=== PATIENT | female | born 2000 | race Hispanic/Latino ===

== ENCOUNTER 2024-11-04 13:56 | Emergency (ER) | payer OTHER, SELFPAY ==
[2024-11-04 14:26] VITALS: BP 115/72; PULSE 79; RESP 16; TEMP 36.6; O2SAT 98
[2024-11-04] MEDS: LIDOCAINE 1% LOCAL INJ 10 ML VIAL INFILTRATE (17:08)
--- NOTE | 2024-11-04 17:13 | ED.UPPEXIN ---
HPI - Extremity Injury (Upper) General Chief Complaint: Extremity Injury, Upper Stated Complaint: lac to R. hand Time Seen by Provider: 11/04/24 15:32 Source: patient Mode of arrival: ambulatory Limitations: no limitations History of Present Illness HPI narrative: Patient is a 24-year-old female who presents the ED with report of laceration to her right palm. 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 Denies any other injuries. Tetanus unknown. Patient is currently 35 weeks gestation. Related Data Allergies Allergy/AdvReac Type Severity Reaction Status Date / Time No Known Allergies Allergy Verified 11/04/24 14:28 Review of Systems Review of Systems: All systems reviewed & are unremarkable except as noted in HPI. All systems reviewed & are unremarkable except as noted in HPI and below Exam Narrative: GENERAL: Well appearing, well-nourished, non-toxic, in no acute distress. HEAD: Normocephalic, atraumatic. RESPIRATORY: Airway patent, respirations nonlabored. CARDIOVASCULAR: Regular rate and rhythm. Radial pulses intact MUSCULOSKELETAL: Moves all extremities. No gross deformities. SKIN: Warm, dry, normal color. 2cm laceration to R thenar region, well approximated, no active bleeding. NEURO: A&O X3. Speech clear. Steady gait. No ataxic movements. PSYCHIATRIC: Appropriate mood and affect. Normal interaction. Course Vital Signs Vital signs: Vital Signs Temperature 97.9 F 11/04/24 14:26 Pulse Rate 79 11/04/24 14:26 Respiratory Rate 16 11/04/24 14:26 Blood Pressure 115/72 11/04/24 14:26 Pulse Oximetry 98 11/04/24 14:26 Oxygen Delivery Room Air 11/04/24 14:26 Temperature 97.9 F 11/04/24 14:26 Pulse Rate 79 11/04/24 14:26 Respiratory Rate 16 11/04/24 14:26 Blood Pressure 115/72 11/04/24 14:26 Pulse Oximetry 98 11/04/24 14:26 Oxygen Delivery Room Air 11/04/24 14:26 Procedures Laceration Laceration 1: Date: 11/04/24 Time: 17:00 Site: hand Side (If applicable): right Size (cm): 2 Description: linear Depth: simple, single layer Local Anesthetic: lidocaine 1% Amount of anesthesia used (mL): 5 Pre-repair: wound explored and irrigated ====== Skin Level ====== Skin layer closed with: nylon Size (cm): 4-0 Number of sutures: 5 Technique: simple, interrupted ====== Subcutaneous Layer ====== ====== Muscle Layer ====== ====== Tendon Layer ====== MDM - Extremity Injury (Upper) MDM Narrative Medical decision making narrative: Laceration repaired without complications. Patient's tetanus updated in the ED. Given wound care instructions and reasons to return. Discharged in stable condition. Medical Records Attestation: I reviewed the patient's medical records. Discharge Plan Discharge Clinical Impression: Laceration of right hand Qualifiers: Encounter type: initial encounter Foreign body presence: without foreign body Qualified Code(s): S61.411A - Laceration without foreign body of right hand, initial encounter Patient Disposition: Home Condition: Stable Instructions: Antibiotic Form, Care For Your Stitches (ED), Laceration (ED) Additional Instructions: Return to the ED or visit an urgent care or your PCP for follow-up and wound check/suture removal in 10 to 14 days. Wash with simple soap and water twice daily, but do not scrub. Bandage if needed. Return to the ED if you experience uncontrolled bleeding, fever, chills, pus-like drainage, or redness/swelling/warmth surrounding the wound, as these could be signs of an infection. Patient Language: Upper Sorbian Follow-up/Referrals: PHYSICIAN,TOBACCO FEEDER CATCHER [Primary Care Provider, Internal Medicine] Time of Disposition: 17:14
[2024-11-04] MEDS: TETANUS,DIPHTHERIA,AC PERTUSSIS ADULT (0.5 ML) BOOSTRIX IM (17:20)
== END 2024-11-04 17:30 | disposition home or self-care (01) ==
PROVIDERS: Emergency Provider Physician Assistant
DX: S61.411A Laceration without foreign body of right hand, initial encounter (principal); W29.0XXA Contact with powered kitchen appliance, initial encounter; Z23 Encounter for immunization
CPT/HCPCS: 12001; 90471; 90715; 99282; J2003

== ENCOUNTER 2024-11-09 00:59 | Inpatient (IN) | payer OTHER, SELFPAY ==
[2024-11-09] VITALS (146 sets, daily range): BP systolic 75–153; BP diastolic 33–101; PULSE 57–289; RESP 16; TEMP 36.1–37.3; O2SAT 70–100; BMI 30.2
[2024-11-09 02:06] LABS: Hematocrit 36.3 % (37.0-47.0); Hemoglobin 12.0 g/dL (12.0-15.0); Immature Granulocyte Percent A 0.5 % (0-0.5); Lymphocytes Absolute Auto 2.15 K/mm3 (0.9-3.2); Mean Corpuscular HGB Conc 33.1 g/dl (32-36); Mean Corpuscular Hemoglobin 29.3 pg (26-34); Mean Corpuscular Volume 88.8 fl (80-100); Nucleated Red Blood Cells Absolute Auto 0.000 K/mm3 (0.0-0.012); Nucleated Red Blood Cells Perc 0.0 % (0.0-0.2); Platelet Count Result 140 k/mm3 (150-375); Red Blood Count 4.09 M/mm3 (4.2-5.4); White Blood Count 11.2 K/mm3 (4.5-10.0)
[2024-11-09] MEDS: LACTATED RINGERS 1,000 ML 125 ML IV CONT ×4 (02:08→15:04)
[2024-11-09] MEDS: AMPICILLIN SODIUM 2 GM in SODIUM CHLORIDE 0.9% IV 100 ML 200 ML IVPB (02:09)
--- NOTE | 2024-11-09 02:16 | LDADM ---
This patient, Kaylee Alexander, was admitted to Labor/Delivery/Recovery 107 on 11/09/24 at 00:59. Plans for labor, pain management and were discussed with patient. Patient/family oriented to hospital policies and general routines including ID bracelet, bed and alarms, visiting hours, pain management, procedures, bathroom and other care routines, personal items, smoking policy, room service/diet and guest tray routines, infant security routines, and visiting hours. Patient/Family are encouraged to report perceived risks to care and to ask questions if they do not understand what they are told or what they should do. See OBIX for further documentation.
[2024-11-09 02:54] LABS: Syphilis IgG/IgM Antibody Non-Reactive (Nonreactive)
[2024-11-09 03:07] LABS: HIV 1/2 Ab P24 Ag Result Negative (Negative)
[2024-11-09] MEDS: AMPICILLIN SODIUM 1 GM in SODIUM CHLORIDE 0.9% IV 50 ML 100 ML IVPB ×2 (06:16→10:09)
[2024-11-09] MEDS: SODIUM CHLORIDE 0.9% IV 300 ML 600 ML I-UTERINE (06:46)
[2024-11-09 07:20] LABS: Hepatitis B Surface Anti Res Positive
--- NOTE | 2024-11-09 08:06 | WPDANESEPP ---
Anes - Eval Pre Procedure Procedure: Labor Epidural Date/Time: 11/09/24 08:06 Surgeon: Kleber Preop Diagnosis: Labor Pain Pre Op Diagnosis: SROM Patient Data Age: 24 Gender: F Height: 1.6 m Weight: 77.27 kg Last Vital Signs Temp 36.6 C 11/09/24 06:15 Pulse 79 11/09/24 08:01 BP 102/44 L 11/09/24 08:01 O2 Del Method Room Air 11/09/24 02:14 Allergies Allergy/AdvReac Type Severity Reaction Status Date / Time No Known Allergies Allergy Verified 11/04/24 14:28 Laboratory Tests 11/09/24 11/09/24 01:59 02:00 WBC 11.2 H K/mm3 (4.5-10.0) RBC 4.09 L M/mm3 (4.2-5.4) Hgb 12.0 g/dL (12.0-15.0) Hct 36.3 L % (37.0-47.0) MCV 88.8 fl (80-100) MCH 29.3 pg (26-34) MCHC 33.1 g/dl (32-36) RDW 13.0 % (11.5-14.5) Plt Count 140 L k/mm3 (150-375) MPV 12.0 H fl (7.4-10.4) Immature Gran % (Auto) 0.5 % (0-0.5) Neut % (Auto) 72.1 % (45.5-73.1) Lymph % (Auto) 19.3 % (18.3-44.2) [place] % (Auto) 7.4 % (2.6-8.5) Eos % (Auto) 0.4 % (0-4.4) Baso % (Auto) 0.3 % (0.2-1.2) Lymph # (Auto) 2.15 K/mm3 (0.9-3.2) [place] # (Auto) 0.8 H K/mm3 (0.1-0.6) Eos # (Auto) 0.0 K/mm3 (0-0.3) Baso # (Auto) 0.0 K/mm3 (0.0-0.1) Abs Immat Gran (auto) 0.06 H K/mm3 (0.00-0.031) Absolute Neuts (auto) 8.0 H K/mm3 (1.3-6.7) Absolute Nucleated RBC 0.000 K/mm3 (0.0-0.012) Nucleated RBC % 0.0 % (0.0-0.2) Syphilis IgG/IgM Ab Non-reactive (Nonreactive) Hep Bs Antibody Positive HIV 1&2 Ab/P24 Ag 4thGn Negative (Negative) Rubella IgG Antibody 6.4 L IU/ML (10 - ) Blood Type O Positive Antibody Screen Negative : gestational age (, PATTIE 12/05/24) Patient hx anesthesia problems: none Family hx anesthesia problems: none Results Review: All pre-operative results and documents have been reviewed as part of the pre-operative evaluation. [facility] Social History Social History Smoking status: Never smoker Second hand tobacco smoke exposure: No Substance use: never Lack of Transportation: No Lack of Food: Never True Current Housing: I Have Housing Concerned About Future Housing: No Difficulty Paying Gas/Electric Bills: No Difficulty Paying for Meds: No Currently Unemployed: No Education: Bachelor's Degree Difficulty w/ Childcare or Family Care: No Spiritual care concerns: No Exam Day of Procedure 11/09/24 08:06 Patient weight: normal Heart: regular rate and rhythm Lungs: normal air movement Airway: Mallampati scale class II Neurological: alert and oriented
[2024-11-09] MEDS: OXYTOCIN 30 UNITS/NS 500 ML 30 UNITS/500 ML BAG IV CONT (09:31)
--- NOTE | 2024-11-09 12:32 | WPDOBADMIT ---
Obstetrics - Admit Note Admission Note: record reviewed. No pertinent additions to the history and/or any subsequent changes in the physical findings that are not consistent with the expected course of the were found. Additions to the history and/or subsequent changes in the physical findings follow. Here for SROM at 36 2/7 weeks in early labor. Progressed to 5 cm then stalled. Pitocin started. Now /-1 AROM forebag. Unable to place IUPC. FHTs cat I.
[2024-11-09] MEDS: TERBUTALINE SULFATE 1 MG/ML VIAL 0.25 MG SUB-Q (13:07)
--- NOTE | 2024-11-09 13:50 | P.PCNOB_ITS ---
OB - Delivery Note Procedure Delivery date: 11/09/24 Pre-op diagnosis: Decelerations, Premature Rupture of Membranes and Other (36 2/7) Post-op Diagnosis: Same Induction method: None Delivery augmentation: Rupture of Membranes and Pitocin Delivery monitor: External FHT and Internal Uterine Prior to decision for section, ACOG/SMFM labor guidelines were consider ed and discussed with the patient and staff. Decision made to proceed with the section.: Yes Procedure Performed: Primary Primary branch: low cervical, transverse Surgeon: Elizabeth Bennett MD Anesthesia type: Epidural Description of Procedure/Findings: Had after I left the OB unit I was immediately called back for recurrent deep variable decelerations down to the 40s lasting for 1 full minute and returned to baseline. On my arrival the pattern was continuing. On cervical check the cervix was unchangedat6.5cm. IUPC was able to be placed anteriorly. Amnio infusion was begun. Pattern was watched for an additional 5minutes and did not resolve at all and actually worsened. Decision was made to proceed with primary . The was translating until the pharmacy general manager was obtained in the operating room after the patient was moved. 2minutes heart tones at 1:40 a.m. prior to removing the monitor. Once anesthesia was deemed adequate, the patient was prepped and draped. A Pfannenstiel skin incision was made with a scalpel and carried down to the underlying layer of fascia which was nicked in the midline and extended laterally using Hernández scissors. Ochsner was used to tent the fascia which was dissected off using sharp and blunt dissection. The rectus muscles are then in the midline and the peritoneum tented and entered with Metzenbaum scissors. The incision was extended with blunt traction. The bladder blade was placed. Vesicouterine peritoneum was tented and entered with Metzenbaum and extended laterally using Metzenbaum scissors. The bladder flap was created digitally and the bladder blade replaced. The lower uterine segment incised in transverse fashion with the scalpel and extended laterally using blunt traction. The vertex is brought up into the incision and delivered with minimal assistance. The was fully delivered and the cord clamped and cut. The had good tone on the abdomen was attempting to cry. No nuchal cord was noted and no abruption was noted. The placenta was removed using manual traction. The uterus was cleared of all clots and debris and exteriorized. The uterine incision was closed using 0 Monocryl in a running locked fashion. Same suture was used to imbricate. Good hemostasis was noted. The uterus was returned to the abdomen after the cul-de-sac is irrigated. Gated the gutters were then irrigated and the incision again inspected noted to be hemostatic. The fascia was closed using 0 Vicryl in a running fashion. The subcutaneous tissues were irrigated and noted to be hemostatic. Skin is closed using 4-0 Vicryl in a subcuticular fashion. Dermaflex was placed over the incision. Patient was given Ancef prior to incision. Sponge, needle, and instrument counts are correct per the OR staff. The patient was taken to recovery in stable condition. Specimen: Yes (Placenta) Estimated Blood Loss: 500 (Not calculated prior to this dictation. This is my estimate) Drains: Yes (Bone) Packing: No Complications: No immediate complications Condition: Stable Disposition: Floor [place] Baby Date of : 11/09/24 Gestational Age by Date: 36 (36 2) Infant gender: Female Weight (pounds): 4 Weight (ounces): 13 presentation: vertex position: Right Occiput Anterior Placenta delivery description: Spontaneous Cord Vessel Description: 3 Vessels score one minute: 6 score five minutes: 7
--- NOTE | 2024-11-09 13:58 | PM.OBDSVD ---
DS: Admitting Diagnosis Discharge Date 11/12/24 Admitting Diagnosis Intrauterine at 36 and 2/7 weeks with premature rupture of membranes in active labor DS: Discharge Diagnosis Discharge Diagnosis (1) Delivery by section using transverse incision of lower segment of uterus: Code(s): O82 - Encounter for delivery without indication Status: Acute (2) Variable deceleration: Status: Acute Assessment and Plan: Resolved OB - DS: Summary OB Procedures : Ultrasound OB Procedures Intrapartum: low cervical, transverse OB Procedures: : None Peripartum Data Infant Delivery Method: Section (LTCS) Procedures: Procedures Operation Date: 11/09/24 13:15 <No data on this case meets the specified criteria> complications: none Status at Discharge Functional status at discharge: independent ambulation Overall status at discharge: patient is progressing back to baseline Time Spent with Patient Time attestation: Total time spent providing and/or coordinating discharge services: DS: Data Data Completed and Pending Labs on day of discharge: Labs from last 24 hours 11/09/24 11/09/24 02:00 01:59 WBC 11.2 H RBC 4.09 L Hgb 12.0 Hct 36.3 L MCV 88.8 MCH 29.3 MCHC 33.1 RDW 13.0 Plt Count 140 L MPV 12.0 H Immature Gran % (Auto) 0.5 Neut % (Auto) 72.1 Lymph % (Auto) 19.3 [place] % (Auto) 7.4 Eos % (Auto) 0.4 Baso % (Auto) 0.3 Lymph # (Auto) 2.15 [place] # (Auto) 0.8 H Eos # (Auto) 0.0 Baso # (Auto) 0.0 Abs Immat Gran (auto) 0.06 H Absolute Neuts (auto) 8.0 H Absolute Nucleated RBC 0.000 Nucleated RBC % 0.0 Syphilis IgG/IgM Ab Non-reactive Hep Bs Antigen Pending Hep Bs Antibody Positive HIV 1&2 Ab/P24 Ag 4thGn Negative Rubella IgG Antibody 6.4 L Blood Type O Positive Antibody Screen Negative Discharge Plan Discharge Attending physician on discharge: Juan Daniel Penny Consulting providers: Kirstie Estrella Discharging Clinician: Juan Daniel Penny Patient Disposition: Home Activity: may shower, may drive after 2 weeks and pelvic rest Diet: as tolerated Wound Care Instructions: incision open to air Discharge Instructions: Education: Mom and Baby Guide Given to: Mother Follow-Up: Call your delivering provider's office for an appointment to be seen in: 4 Weeks Mom and baby should come to the [facility] for the follow-up appointment. Appointment Date/Time: November 13, 2024 at 8:00 am What to expect at your follow-up visit: Blood Pressure Check Physical Assessment Call [phone] if you are unable to keep your appointment time. BREAST CARE: * Wear a snug supportive bra. * For engorgement discomfort: Breast Feeding: * Apply warm moist washcloths * Express milk as needed to relieve engorgement * Wear loose clothing Bottle Feeding: * May apply ice packs * For sore nipples: * Identify correct latch-on * Apply warm moist washcloths before and after nursing * Air dry nipples after nursing * May apply Lansinoh cream to nipples ABDOMINAL INCISION: * Allow incision to air dry * Do NOT use lotions or powders on your incision * When showering, allow soap and water to run over the incision, but do not wash incision PERINEAL CARE: * Until bleeding stops, use your nik bottle after urinating * Change your pad frequently throughout the day * You may take sitz baths several times a day (fill your bathtub with warm water and soak for 20 minutes.) Do NOT bathe in the water * No tub baths until seen by your physician - You may shower ACTIVITY: * Rest as much as possible. * Do not exercise or lift anything heavier than your baby (such as laundry or other children.) * Avoid stairs or driving as much as possible. * Do not put anything into the vagina. No douching, tampons, or sexual activity until seen by physician. NOTIFY PHYSICIAN IF YOU HAVE ANY QUESTIONS OR IF ANY OF THE FOLLOWING SYMPTOMS OCCUR: * If your incision becomes red, swollen, or more painful than what you have experienced in the hospital. * If your vaginal bleeding becomes foul smelling. * If your vaginal bleeding becomes more heavy than a period or if your bleeding changes from pink to bright red. However, you may pass an occasional walnut-sized clot once or twice for the first week . * If you experience a sharp, shooting pain in your calves. * If you discover a hard, reddened area on your breast or if you experience flu-like symptoms. DIET: * Eat regular, well-balanced meals. * Drink plenty of fluids daily. If , drink to thirst. Patient Instructions: (DC) Patient Language: Montenegrin Stand Alone Forms: General Discharge Information Follow-up/Referrals: Juan Daniel Penny MD [Physician, SUPERINTENDENT CUSTODIAN JANITOR] - 4 Weeks Discharge Medications: New hydrocodone-acetaminophen 5-325 mg tablet 1 tablet PO Q4H PRN (Reason: pain) Qty: 20 0RF Date of admission: 11/09/24 00:59 Primary Care Provider: PHYSICIAN,AEROBICS INSTRUCTOR Admitting Provider: Elizabeth Bennett Attending physician on admission: Juan Daniel Penny Condition: Stable
[2024-11-09] MEDS: OXYTOCIN 30 UNITS/NS 500 ML 30 UNITS/500 ML BAG 125 UNITS IV CONT (14:00)
[2024-11-09 14:01] LABS: Hepatitis B Surface Antigen Negative (Negative)
--- NOTE | 2024-11-09 14:50 | SUR.OPER ---
1448- called TIFFANY Estrella to report pt blood pressures. Pt is asymptomatic at this time. Orders received.
--- NOTE | 2024-11-09 15:45 | S_PTH ---
PATIENT: Kaylee Andres LOC: ANHOB2 U#:[id number] AGE/SX: 24/F ROOM: 288 RE11/09/[address]: Juan Daniel De La Cruz MD : 2000 BED: 00 DIS: 11/12/2024 SPEC #: [id number] RECD: 11/11/24 07:49 STATUS: RENALDO REQ #: [id number] HELENA: 11/09/24 15:[address]: Kirstie Estrella DEPT: [facility] Surgical RECD BY: Jewel Diamond ENTERED: 11/11/24 07:49 SP TYPE: Surgical OTHR DR: Juan Daniel De La Cruz MD CNC SERVICE ENGINEER PHYSICIAN Tissues: A - Placenta Procedures: Hematoxylin and Eosin Stain Gross and Microscopic Level 5
[2024-11-09] MEDS: KETOROLAC 15 MG/ML VIAL (*BKC) IV PUSH ×2 (15:51→23:33)
[2024-11-09] MEDS: SIMETHICONE 80 MG TAB.CHEW PO (17:49)
[2024-11-09] MEDS: LIDOCAINE 5% PATCH 1 PATCH TRANSDERM (17:49)
[2024-11-09] MEDS: ACETAMINOPHEN 500 MG TABLET 1000 MG PO ×2 (17:49→23:32)
[2024-11-09] MEDS: oxyCODONE HCL (*CRX) 5 MG TAB IR PO (17:50)
[2024-11-09] MEDS: DOCUSATE SODIUM 100 MG CAPSULE PO (17:53)
[2024-11-09] MEDS: DEXTROSE 5%/0.45% SOD CHL 1,000 ML 125 ML IV CONT (18:01)
--- NOTE | 2024-11-09 18:31 | PC.NURSE ---
1715. Patient transferred to post room #288 via hospital bed. Support person present. Oriented to unit, room, information board, rooming in, admission packet and security measures. Patient verbalizes understanding.
--- NOTE | 2024-11-09 20:57 | PC.NURSE ---
2054. Patient escorted to level 2 nursery via wheelchair to visit her baby with her partner by her side.
[2024-11-10 04:15] VITALS: BP 103/67; PULSE 66; RESP 16; TEMP 36.6; O2SAT 97
[2024-11-10 05:21] LABS: Hematocrit 28.6 % (37.0-47.0); Hemoglobin 9.3 g/dL (12.0-15.0); Immature Granulocyte Percent A 0.5 % (0-0.5); Lymphocytes Absolute Auto 1.76 K/mm3 (0.9-3.2); Mean Corpuscular HGB Conc 32.5 g/dl (32-36); Mean Corpuscular Hemoglobin 29.7 pg (26-34); Mean Corpuscular Volume 91.4 fl (80-100); Nucleated Red Blood Cells Absolute Auto 0.000 K/mm3 (0.0-0.012); Nucleated Red Blood Cells Perc 0.0 % (0.0-0.2); Platelet Count Result 115 k/mm3 (150-375); Red Blood Count 3.13 M/mm3 (4.2-5.4); White Blood Count 12.2 K/mm3 (4.5-10.0)
[2024-11-10] MEDS: ACETAMINOPHEN 500 MG TABLET 1000 MG PO ×4 (05:39→23:16)
[2024-11-10] MEDS: KETOROLAC 15 MG/ML VIAL (*BKC) IV PUSH (05:39)
[2024-11-10 07:20] VITALS: BP 100/49; PULSE 60; RESP 14; TEMP 36.9; O2SAT 97
[2024-11-10] MEDS: DOCUSATE SODIUM 100 MG CAPSULE PO ×2 (09:11→17:40)
[2024-11-10] MEDS: SIMETHICONE 80 MG TAB.CHEW PO ×3 (09:11→17:42)
[2024-11-10] MEDS: MULTIVIT/MIN/PREN/FOL AC/IRON TABLET 1 TAB PO (09:11)
--- NOTE | 2024-11-10 10:57 | PM.OBPNVD ---
OB - PN: Subj Subjective Date/time seen: 11/10/24 10:57 Patient comments: no complaints and pain well controlled baby status: doing well OB - PN: Obj Data Labs 11/10/24 04:30 Labs: Laboratory Results - last 24 hr 11/09/24 11/10/24 01:59 04:30 WBC 12.2 H RBC 3.13 L Hgb 9.3 L Hct 28.6 L MCV 91.4 MCH 29.7 MCHC 32.5 RDW 13.0 Plt Count 115 L MPV 12.6 H Immature Gran % (Auto) 0.5 Neut % (Auto) 78.5 H Lymph % (Auto) 14.5 L [place] % (Auto) 6.2 Eos % (Auto) 0.1 Baso % (Auto) 0.2 Lymph # (Auto) 1.76 [place] # (Auto) 0.8 H Eos # (Auto) 0.0 Baso # (Auto) 0.0 Abs Immat Gran (auto) 0.06 H Absolute Neuts (auto) 9.6 H Absolute Nucleated RBC 0.000 Nucleated RBC % 0.0 Hep Bs Antigen Negative OB - PN A/P Plan day: 1 Plan: routine care Time Spent With Patient Time: Total time spent is greater than 50% in coordination of care (as documented) at patient's floor/unit and/or counseling patient: Exam Narrative: inc c/d/i : Bimanual exam- vagina & uterus: other (Uterus firm, nt @U)
--- NOTE | 2024-11-10 11:34 | WPDANLDPN2 ---
Anes-Prog Note L&D Date/Time: 11/10/24 11:34 Comfortable throughout: labor and section Neuraxial method: epidural Epidural/Spinal procedure site: clean & non-tender Neuro status: Neuro function grossly intact. Cardiovascular status: normal Respiratory status: normal Airway patency: baseline Mental status: baseline Post-Op hydration status: normal Vital Signs: Last Vital Signs Temp 36.9 C 11/10/24 07:20 Pulse 60 11/10/24 07:20 Resp 14 11/10/24 07:20 BP 100/49 L 11/10/24 07:20 Pulse Ox 97 11/10/24 07:20 O2 Del Method Room Air 11/10/24 04:15 Pain score (VAS): 03/21 I/O: Intake & Output 11/09/24 11/10/24 11/10/24 23:59 07:59 15:59 Intake Total 750 Output Total 2900 900 550 Balance -2900 -150 -550 Post-procedural complaints: none Patient feedback: Patient satisfied with anesthetic care.
--- NOTE | 2024-11-10 11:34 | WPDANLDNPN2 ---
Anes-Prog Note L&D-Neuraxial Date/Time: 11/10/24 11:34 Neuraxial medications: intrathecal PF morphine Opiod-related complaints: none Patient feedback: Patient satisfied with post-operative pain management.
[2024-11-10] MEDS: IBUPROFEN 600 MG TABLET PO ×3 (11:36→23:16)
[2024-11-10 12:14] VITALS: BP 107/71; PULSE 73; RESP 16; TEMP 37.1; O2SAT 99
--- NOTE | 2024-11-10 14:00 | PC.NURSE ---
Breast pump provided due to [maternal preference and was in level 2 nursery]. Father present in room to translate per patient's preference. Instructions given on cleaning, care, usage, that there should be no pain, pumping schedule for milk production, collection, and storage of human milk. Patient was assessed for correct placement, flange size, to pump for adequate milk production every 3 hours (8 times in 24 hours) 1-2 times at night. Parents are educated on milk production in the early period.?Mother voiced understanding of the education shared along with mom/baby guide for additional resource information. Reported to the Primary RN.
[2024-11-10 20:20] VITALS: BP 119/66; PULSE 75; RESP 16; TEMP 36.1; O2SAT 99
[2024-11-10] MEDS: LIDOCAINE 5% PATCH 1 PATCH TRANSDERM (23:16)
[2024-11-11] MEDS: oxyCODONE HCL (*CRX) 5 MG TAB IR PO ×2 (04:21→18:57)
[2024-11-11] MEDS: ACETAMINOPHEN 500 MG TABLET 1000 MG PO ×4 (05:27→23:55)
[2024-11-11] MEDS: IBUPROFEN 600 MG TABLET PO ×4 (05:27→23:55)
--- NOTE | 2024-11-11 07:39 | P.PNOB_ITS ---
OB - PN: Subj Subjective Date/time seen: 11/11/24 07:39 Patient comments: no complaints, pain well controlled, tolerating diet and flatus present baby status: doing well OB - PN: Obj Data Labs 11/10/24 04:30 OB - PN A/P Assessment and Plan (1) Delivery by section using transverse incision of lower segment of uterus: Code(s): O82 - Encounter for delivery without indication Status: Acute Plan routine care Time Spent With Patient Time: Total time spent is greater than 50% in coordination of care (as documented) at patient's floor/unit and/or counseling patient: Review of Systems 2 Review of Systems: All systems reviewed & are unremarkable except as noted in HPI. All systems reviewed & are unremarkable except as noted in HPI and below Exam 2 Narrative: inc c/d/i : Bimanual exam- vagina & uterus: other (Uterus firm, nt @U)
--- NOTE | 2024-11-11 07:55 | PC.NURSE ---
Introductions were made, then consulted with patient to assess needs related to . Mother led the conversation with her?plans to feed?her and the?experience so far. Mother states that her left breast does hurt and appears to have developed a sore from pumping. Mother was using size 21mm flange upon assessment and does have nipple cream at bedside. Mother states that she has been using the nipple cream given to her by her primary RN. Accessed mothers nipples and measured for correct flange size. Nipple size bilaterally is 19mm which places her in a size 24mm flange. Encouraged mother to use the larger size flange size and apply nipple cream before and after pumping. Mother will call for assistance if needed. Primary RN updated.
[2024-11-11 08:00] VITALS: BP 109/71; PULSE 74; RESP 16; TEMP 37; O2SAT 98
[2024-11-11] MEDS: MULTIVIT/MIN/PREN/FOL AC/IRON TABLET 1 TAB PO (08:36)
[2024-11-11] MEDS: DOCUSATE SODIUM 100 MG CAPSULE PO ×2 (08:36→17:44)
[2024-11-11] MEDS: SIMETHICONE 80 MG TAB.CHEW PO ×3 (08:36→17:44)
[2024-11-11 19:27] VITALS: BP 115/69; PULSE 71; RESP 16; TEMP 36.3; O2SAT 100
[2024-11-11] MEDS: LIDOCAINE 5% PATCH 1 PATCH TRANSDERM (23:55)
--- NOTE | 2024-11-12 05:16 | P.PNOB_ITS ---
OB - PN: Subj Subjective Date/time seen: 11/12/24 05:16 Patient comments: no complaints, pain well controlled, tolerating diet and flatus present baby status: doing well OB - PN: Obj Data Labs 11/10/24 04:30 OB - PN A/P Assessment and Plan (1) Delivery by section using transverse incision of lower segment of uterus: Code(s): O82 - Encounter for delivery without indication Status: Acute Plan routine care Time Spent With Patient Time: Total time spent is greater than 50% in coordination of care (as documented) at patient's floor/unit and/or counseling patient: Review of Systems 2 Review of Systems: All systems reviewed & are unremarkable except as noted in HPI. All systems reviewed & are unremarkable except as noted in HPI and below Exam 2 Narrative: inc c/d/i : Bimanual exam- vagina & uterus: other (Uterus firm, nt @U)
[2024-11-12] MEDS: ACETAMINOPHEN 500 MG TABLET 1000 MG PO ×2 (05:51→11:43)
[2024-11-12] MEDS: IBUPROFEN 600 MG TABLET PO ×2 (05:51→11:43)
[2024-11-12] MEDS: SIMETHICONE 80 MG TAB.CHEW PO ×2 (08:13→11:43)
[2024-11-12] MEDS: DOCUSATE SODIUM 100 MG CAPSULE PO (08:13)
[2024-11-12] MEDS: MULTIVIT/MIN/PREN/FOL AC/IRON TABLET 1 TAB PO (08:13)
[2024-11-12 09:05] VITALS: BP 116/70; PULSE 73; RESP 16; TEMP 37; O2SAT 98
[2024-11-12] MEDS: MEASLES,MUMPS,RUBELLA VACCINE 0.5 ML VIAL SUB-Q (13:18)
--- NOTE | 2024-11-12 15:16 | PC.NURSE ---
Patient viewed the discharge video Mother & Baby Care, The First Two Weeks. Patient was given the opportunity and encouraged to ask questions. Patient verbalized understanding of information shared and has been given the mother/baby guide for home reference.
[2024-11-13 08:39] VITALS: BP 121/68; PULSE 80; RESP 18; TEMP 36.8; O2SAT 100
--- NOTE | 2024-11-24 08:07 | PM.IMHP ---
H&P: HPI History of Present Illness Date/Time: 11/24/24 08:07 Chief Complaint: Premature rupture membranes Narrative: 24-year-old 36 and 2/7 weeks with premature rupture of membranes and and contractions. Patient did not progress with her cervix so she was augmented with Pitocin. Patient progressed to approximately 5cm and then began having decelerations. These did not resolve with position change or stopping the Pitocin. It was recommended to undergo primary for intolerance of labor. Using the as micro computer specialist and the online micro computer specialist this was reviewed with the patient and she agreed to proceed. Review of Systems Review of Systems: not repeated day of surgery; patient states no changes in status PMFSH Past Medical History Medical History (Updated 11/24/24 @ 08:10 by Elizabeth Bennett MD) No active medical problems Social History Social History Smoking status: Never smoker Second hand tobacco smoke exposure: No Substance use: never Lack of Transportation: No Lack of Food: Never True Current Housing: I Have Housing Concerned About Future Housing: No Difficulty Paying Gas/Electric Bills: No Difficulty Paying for Meds: No Currently Unemployed: No Education: Bachelor's Degree Difficulty w/ Childcare or Family Care: No Spiritual care concerns: No Meds Home Medications and Allergies Home Medications ?Medication ?Instructions ?Recorded ?Confirmed ?Type hydrocodone 5 mg-acetaminophen 325 1 tablet PO Q4H PRN pain #20 tabs 11/11/24 Rx mg tablet Allergies Allergy/AdvReac Type Severity Reaction Status Date / Time No Known Allergies Allergy Verified 11/04/24 14:28 Exam Const: General: healthy appearing and alert Orientation/consciousness: patient oriented x3 Resp: Effort & Inspection: normal respiratory effort GI: GI Palp: Yes Soft to palpation, No Tenderness to palpation present (GI) and Yes Other GI palpation findings present (Gravid) : External Female Exam: normal external appearance Manual OB Exam: dilated 5 cm Amniotic Fluid: clear Urinary Catheter: Urinary Catheter: patent and draining Neuro: General: patient oriented x3 Assessment and Plan Assessment and plan (1) intolerance to labor, delivered, current hospitalization: Code(s): O77.9 - Labor and delivery complicated by stress, unspecified Status: Acute Assessment and Plan: Proceeded with primary section (2) 36 weeks gestation of : Code(s): Z3A.36 - 36 weeks gestation of Status: Acute (3) Premature rupture of membranes: Code(s): O42.90 - Premature rupture of membranes, unspecified as to length of time between rupture and onset of labor, unspecified weeks of gestation Status: Acute
== END 2024-11-12 16:43 | disposition home or self-care (01) | DRG 788 ==
LOC: ANHLDR 14:01 → ANHOB2 17:30
PROVIDERS: Admitting Provider Obstetrics & Gynecology Gynecology; Visit Provider Obstetrics & Gynecology
PROC: 10D00Z1 Extraction of Products of Conception, Low, Open Approach (ICD-10-PCS; CPT 59514; principal; 2024-11-09 13:15)
DX: O42.913 Preterm premature rupture of membranes, unspecified as to length of time between rupture and onset of labor, third trimester (principal); O76 Abnormality in fetal heart rate and rhythm complicating labor and delivery; Z3A.36 36 weeks gestation of pregnancy; Z37.0 Single live birth
CPT/HCPCS: 36415; 85025; 86593; 86703; 86706; 86762; 86850; 86900; 86901; 87340; 88307; 90710; A9270; G0432; J0290; J1885; J2004; J2274; J2405; J2590; J2795; J3105; J7030; J7120

== ENCOUNTER 2024-11-13 08:53 | Emergency (ER) | payer OTHER, SELFPAY ==
[2024-11-13 09:03] VITALS: BP 128/85; PULSE 71; RESP 14; TEMP 36.9; O2SAT 100
--- NOTE | 2024-11-13 09:04 | ED.SKABFB ---
HPI - Skin/Abscess/Foreign Bdy General Chief complaint: Skin/Abscess/Foreign Body Stated complaint: stitches removal Time Seen by Provider: 11/13/24 08:57 History of Present Illness HPI narrative: 24-year-old female presents ER requesting suture removal to her right hand. No other complaints. Related Data Allergies Allergy/AdvReac Type Severity Reaction Status Date / Time No Known Allergies Allergy Verified 11/04/24 14:28 Review of Systems Review of Systems: All systems reviewed & are unremarkable except as noted in HPI and below PMFSH Social History Social History Smoking status: Never smoker Second hand tobacco smoke exposure: No Substance use: never Lack of Transportation: No Lack of Food: Never True Current Housing: I Have Housing Concerned About Future Housing: No Difficulty Paying Gas/Electric Bills: No Difficulty Paying for Meds: No Currently Unemployed: No Education: Bachelor's Degree Difficulty w/ Childcare or Family Care: No Spiritual care concerns: No Exam Const: General: healthy appearing, no acute distress and alert Nutritional Appearance: well nourished Orientation/consciousness: patient oriented x3 Limitations: no limitations HENMT: Head: normal to inspection Eyes: Conjunctivae: conjunctivae normal Pupils: Equal, round and reactive pupils present EOM: EOMs intact bilaterally Resp: Effort & Inspection: normal respiratory effort Auscultation: clear to auscultation bilaterally Cardio: Rate: regular rate Rhythm: regular rhythm Skin: General skin exam: normal color Other: Right hand: Well-approximated laceration to the base of the thumb with 5 intact sutures. No surrounding erythema, soft tissue swelling, lymphangitic spread, purulent drainage. Neuro: General: patient oriented x3, moves all extremities and CN's II-XI intact bilaterally Speech: normal speech Gait exam (Neuro): Normal gait present Extrem: General: normal to inspection Psych: Mental Status: mental status grossly normal Affect: normal affect Attitude: cooperative MDM - Skin/Abscess/Foreign Bdy MDM Narrative Medical decision making narrative: In summary: 24-year-old female presents ER for suture removal. Wound was well approximated with no signs of infection. Five sutures were removed. Patient tolerated procedure well. Discharged home in stable condition Discharge Plan Discharge Clinical Impression: Encounter for removal of sutures Patient Disposition: Home Condition: Stable Instructions: Antibiotic Form Patient Language: Turkish Prescriptions: No Action hydrocodone-acetaminophen 5-325 mg tablet 1 tablet PO Q4H PRN (Reason: pain) Qty: 20 0RF Follow-up/Referrals: PHYSICIAN,NEWS PRODUCTION ASSISTANT [Primary Care Provider, Internal Medicine] Time of Disposition: 09:07
== END 2024-11-13 09:15 | disposition home or self-care (01) ==
LOC: ANHED 09:08
PROVIDERS: Emergency Provider Nurse Practitioner Family
DX: S61.011D Laceration without foreign body of right thumb without damage to nail, subsequent encounter (principal); X58.XXXD Exposure to other specified factors, subsequent encounter
CPT/HCPCS: 15853; 99282